=== PATIENT | female | born 1995 | race Caucasian/White ===

== ENCOUNTER 2020-10-08 16:15 | Emergency (ER) | payer OTHER ==
[~2020-10-08] VITALS: Ht 157.5 cm; Wt 72.1 kg
[~2020-10-08 16:15] MED LIST: METRONIDAZOLE500 MG PO; TRIVORA-281 EACH PO
== END 2020-10-08 20:10 | disposition home or self-care (01) ==
LOC: ED 16:15
DX: N93.8 Other specified abnormal uterine and vaginal bleeding (principal); Z20.822 Contact with and (suspected) exposure to COVID-19; Z87.891 Personal history of nicotine dependence; Z88.0 Allergy status to penicillin; Z88.5 Allergy status to narcotic agent
CPT/HCPCS: 74018; 80053; 80500; 81001; 83690; 84703; 85025; 99284-25; C9803; U0003